=== PATIENT | female | born 1995 | race Caucasian/White ===

== ENCOUNTER 2018-06-01 20:28 | Emergency (ER) | payer SELFPAY ==
[~2018-06-01] VITALS: Ht 182.9 cm; Wt 108.7 kg
[2018-06-01 20:38] VITALS: BP 106/56
[2018-06-01] MEDS ORDERED: NAPR500T8 PO (20:59)
--- NOTE | 2018-06-01 20:59 | PHYS DOC ---
Past History Past Medical History: GERD Past Surgical History: Cholecystectomy Smoking: Cigarettes Alcohol Use: None Drug Use: None Adult General Chief Complaint Chief Complaint: LOWER EXT PAIN HPI HPI 23-year-old female presents with report of sudden left lateral knee pain which started at approximately 1800. Patient reports she was squatting at that time at her place of employment and felt a sudden "pop". Patient subsequent he had some sharp pain to the lateral aspect of her anterior left knee. Denies any swelling. Denies prior injury or surgery. Denies numbness or tingling. Denies . Patient reports her last menstrual period started a few days ago. Patient reports taking ibuprofen just prior to arrival. Review of Systems Review of Systems Constitutional: Denies fever or chills [] [] Cardiovascular: Denies chest pain or palpitations[] GI: Denies abdominal pain, nausea, vomiting, or diarrhea [] : Denies dysuria or hematuria; denies Musculoskeletal: Denies back pain; reports right knee pain [] Integument: Denies rash or skin lesions [] Neurologic: Denies headache, focal weakness or sensory changes [] Complete systems were reviewed and found to be within normal limits, except as documented in this note. Allergies Allergies Allergies Coded Allergies Type Severity Reaction Last Updated Verified Sulfa (Sulfonamide Antibiotics) Allergy Intermediate 06/01/18 Yes Physical Exam Physical Exam Constitutional: Well developed, well nourished, no acute distress, non-toxic appearance. [] HENT: Normocephalic, atraumatic Eyes: Conjunctiva normal, no discharge. [] Neck: Normal range of motion, supple Cardiovascular: Cap refill less than 2 seconds, left posterior tibialis pulse 2/ 4 Lungs & Thorax: No respiratory distress, no accessory muscle use Skin: Warm, dry, no erythema Extremities: ROM intact, no edema, tenderness to palpation to lateral tibial plateau of left knee Neurologic: Alert and oriented X 3,, no focal deficits noted. [] Psychologic: Affect normal, judgement normal, mood normal. [] Current Patient Data Vital Signs Vital Signs Date Time Temp Pulse Resp B/P (MAP) Pulse Ox O2 Delivery O2 Flow Rate FiO2 06/01/18 20:38 98.1 65 18 100 Room Air EKG EKG [] Radiology/Procedures Radiology/Procedures Left knee 3 view x-ray: (Preliminary interpretation by ED physician) no acute fracture or dislocation Course & Med Decision Making Course & Med Decision Making Pertinent Imaging studies reviewed. (See chart for details) Patient presents with left knee pain after feeling a sudden "pop" while patient was at work. No deformity or laxity appreciated on physical exam. Joint appears stable. X-ray obtained without acute process. Symptomatic treatment provided with ice pack and Toney wrap. Patient stable for discharge with outpatient follow-up with PCP/orthopedic surgeon. Orthopedic referral provided. Discussed findings and plan with patient, who acknowledges understanding and agreement. Dragon Disclaimer Dragon Disclaimer This electronic medical record was generated, in whole or in part, using a voice recognition dictation system. Splinting Splinting : Location: Left knee Pre-Made Type: Toney bandage Pre-Proc Neuro Vasc Exam: normal Post-Proc Neuro Vasc Exam: normal, unchanged from pre-exam Departure Departure: Impression: Primary Impression: Knee pain, acute Disposition: 01 HOME, SELF-CARE Condition: STABLE Referrals: PCP,UNKNOWN (PCP) ERNESTINE LOOMIS MD Patient Instructions: Knee Pain, Bvuv-ni-Atbr Scripts Naproxen (NAPROXEN) 500 Mg Tablet.dr 1 TAB PO Q12HR PRN for PAIN, #20 TAB Prov: JUSTUS JIMENEZ DO 06/01/18 Problem Qualifiers Primary Impression: Knee pain, acute Laterality: left Qualified Codes: M25.562 - Pain in left knee JUSTUS JIMENEZ DO Jun 01, 2018 20:59
--- NOTE | 2018-06-02 07:53 | RAD ---
Examination: KNEE LEFT 3V History: knee injury, left knee pain Comparison/Correlation: None Findings: Total 3 views of the left knee were obtained. Joint spaces are normal. No acute fracture or bony destruction. Soft tissues are unremarkable. No definite or significant joint effusion. No definite degenerative change. Impression: No suspicious process. Electronically signed by: Balaji Virk MD (06/02/2018 7:51 AM) [facility]
== END 2018-06-01 21:05 | disposition home or self-care (01) ==
LOC: ER 20:28
DX: M25.562 Pain in left knee (principal); K21.9 Gastro-esophageal reflux disease without esophagitis; F17.210 Nicotine dependence, cigarettes, uncomplicated; Z88.2 Allergy status to sulfonamides; X50.9XXA Other and unspecified overexertion or strenuous movements or postures, initial encounter; Y93.89 Activity, other specified; Y92.89 Other specified places as the place of occurrence of the external cause; Y99.8 Other external cause status
CPT/HCPCS: 73562; 99283

== ENCOUNTER 2018-08-29 13:54 | Emergency (ER) | payer SELFPAY ==
[~2018-08-29] VITALS: Ht 182.9 cm; Wt 106.6 kg
[~2018-08-29 13:54] MED LIST: NAPR500T8 PO
[2018-08-29 14:07] VITALS: BP 103/61
[2018-08-29] MEDS ORDERED: IPRATRPIUM/ALBUTEROL 0.5/2.5MG 3 ML NEBU. NEB ONE (14:15)
--- NOTE | 2018-08-29 14:40 | RAD ---
CHEST PA LATERAL History: Cough for one week Comparison: None. Findings: The cardiomediastinal silhouette is normal. Pulmonary vasculature is normal. The lungs are clear. No pleural effusion or pneumothorax is seen. There is no acute bone abnormality. Right upper quadrant surgical clips are present. IMPRESSION: No acute cardiopulmonary process. Electronically signed by: Balaji Virk MD (08/29/2018 2:37 PM) [facility]
[2018-08-29] MEDS ORDERED: AZIT250T PO (14:47)
--- NOTE | 2018-08-29 14:47 | PHYS DOC ---
Past History Past Medical History: GERD, Other Past Surgical History: Cholecystectomy Smoking: Cigarettes Alcohol Use: None Drug Use: None Adult General Chief Complaint Chief Complaint: COUGH HPI HPI Patient is a 23-year-old female who presents with complaint of cough, sinus congestion and shortness of breath for the last week. Patient states the cough is been getting progressively worse. She also indicates that she has had progressively worsening sputum production that she states started out as clear and has progressively gotten worse to the point now where it is green. She denies any fever. She indicates that the shortness of breath is worsened when she coughs and also with exertion.[] Review of Systems Review of Systems Constitutional: Denies fever or chills [] HENT: Complains of sinus congestion[] Respiratory: Complains of cough and shortness of breath [] Cardiovascular: No additional information not addressed in HPI [] GI: Denies abdominal pain, nausea, vomiting, bloody stools or diarrhea [] Current Medications Current Medications Current Medications Medications (Trade) Dose Ordered Sig/Courtney Start Time Stop Time Status Last Admin Dose Admin Albuterol/ Ipratropium (Duoneb) 3 ml 1X ONCE 08/29/18 14:15 08/29/18 14:22 DC 08/29/18 14:17 3 ML Allergies Allergies Allergies Coded Allergies Type Severity Reaction Last Updated Verified Sulfa (Sulfonamide Antibiotics) Allergy Intermediate 06/01/18 Yes Physical Exam Physical Exam Constitutional: Well developed, well nourished, no acute distress, non-toxic appearance. [] HENT: Normocephalic, atraumatic, bilateral external ears normal, oropharynx moist, no oral exudates, nose normal. [] Cardiovascular:Heart rate regular rhythm, no murmur [] Lungs & Thorax: Coarse rhonchi are noted bilaterally to auscultation [] Extremities: No tenderness, no cyanosis, no clubbing, ROM intact. [] Current Patient Data Vital Signs Vital Signs Date Time Temp Pulse Resp B/P (MAP) Pulse Ox O2 Delivery O2 Flow Rate FiO2 08/29/18 14:17 98 Room Air 08/29/18 14:07 98.3 58 18 EKG EKG [] Radiology/Procedures Radiology/Procedures [] Course & Med Decision Making Course & Med Decision Making Pertinent Labs and Imaging studies reviewed. (See chart for details) [] Dragon Disclaimer Dragon Disclaimer This electronic medical record was generated, in whole or in part, using a voice recognition dictation system. Departure Departure: Impression: Primary Impression: Acute bronchitis Disposition: 01 HOME, SELF-CARE Condition: STABLE Referrals: PCP,UNKNOWN (PCP) Patient Instructions: Acute Bronchitis Scripts Azithromycin (ZITHROMAX) 250 Mg Tablet 1 PKG PO UD for INFECTION, #6 TAB Prov: BETHANIE ARREAGA Jr. DO 08/29/18 Problem Qualifiers Primary Impression: Acute bronchitis Bronchitis organism: unspecified organism Qualified Codes: J20.9 - Acute bronchitis, unspecified BETHANIE ARREAGA Jr. DO Aug 29, 2018 14:47
== END 2018-08-29 14:57 | disposition home or self-care (01) ==
LOC: ER 13:54
DX: J20.9 Acute bronchitis, unspecified (principal); K21.9 Gastro-esophageal reflux disease without esophagitis; F17.210 Nicotine dependence, cigarettes, uncomplicated; Z88.2 Allergy status to sulfonamides
CPT/HCPCS: 71046; 94640; 99284; J7620

== ENCOUNTER 2018-11-03 21:31 | Emergency (ER) | payer SELFPAY ==
[~2018-11-03] VITALS: Ht 180.3 cm; Wt 95.3 kg
[~2018-11-03 21:31] MED LIST changes: +AZIT250T PO
--- NOTE | 2018-11-03 21:39 | ED.ADGEN ---
Past History Past Medical History: GERD, Other Past Surgical History: Cholecystectomy Smoking: Cigarettes Alcohol Use: None Drug Use: None Adult General Chief Complaint Chief Complaint ".... I ve been vomiting.. and having stomach cramps... I feel dehydrated...".. I ve vomited about 8 x day... " HPI HPI Patient is a 23 year old female who presents with above hx and complaints of nausea and vomiting in the past 24 hours. Patient is complaining of abdomen cramping .No history of diarrhea. No history of bad food. No history of travel. No history of specific ill contacts. Patient has had gallbladder removed in 2016 and tubal ligation 1999. Patient any trauma. Patient denies immunosuppression. Patient denies any history of illicit drug use. Patient normally follows at [facility] . Review of Systems Review of Systems Constitutional: Subjective history of fever Eyes: Denies change in visual acuity, redness, or eye pain [] HENT: Denies nasal congestion or sore throat [] Respiratory: Denies cough or shortness of breath [] Cardiovascular: No additional information not addressed in HPI [] GI: Complains of abdomen cramping , nausea, vomiting,. Denies bloody stools or diarrhea [] : Denies dysuria or hematuria [] Musculoskeletal: Denies back pain or joint pain [] Integument: Denies rash or skin lesions [] Neurologic: Denies headache, focal weakness or sensory changes [] Endocrine: Denies polyuria or polydipsia [] All other systems were reviewed and found to be within normal limits, except as documented in this note. Family History Family History Noncontributory Current Medications Current Medications Current Medications Medications (Trade) Dose Ordered Sig/Courtney Start Time Stop Time Status Last Admin Dose Admin Cephalexin HCl (Keflex) 500 mg 1X ONCE 11/03/18 23:30 11/03/18 23:31 DC 11/03/18 23:15 500 MG Famotidine (Pepcid Vial) 20 mg 1X ONCE 11/03/18 22:00 11/03/18 22:01 DC 11/03/18 22:25 20 MG Ketorolac Tromethamine (Toradol 30mg Vial) 30 mg STK-MED ONCE 11/03/18 23:13 11/03/18 23:13 DC Lactated Ringer's 1,000 ml @ 1,000 mls/hr 1X ONCE 11/03/18 23:30 11/04/18 00:21 DC 11/03/18 23:15 1,000 MLS/HR Ondansetron HCl (Zofran) 8 mg 1X ONCE 11/03/18 22:00 11/03/18 22:01 DC 11/03/18 22:25 8 MG Allergies Allergies Allergies Coded Allergies Type Severity Reaction Last Updated Verified Sulfa (Sulfonamide Antibiotics) Allergy Intermediate 06/01/18 Yes Physical Exam Physical Exam Constitutional: Mild to moderate distress, non-toxic appearance. [] HENT: Normocephalic, atraumatic, bilateral external ears normal, oropharynx moist, no oral exudates, nose normal. [] Eyes: PERRLA, EOMI, conjunctiva normal, no discharge. [] Neck: Normal range of motion, no tenderness, supple, no stridor. [] Cardiovascular:Heart rate regular rhythm, no murmur [] Lungs & Thorax: Bilateral breath sounds equal apex auscultation [] Abdomen: Bowel sounds hyperactive, soft, mild generalized tenderness, no masses, no pulsatile masses. [] No specific area rebound. Old surgery scars. Patient declines rectal exam at this time. Skin: Warm, dry, no erythema, no rash. [] Back: No tenderness, no CVA tenderness. [] Extremities: No tenderness, no cyanosis, no clubbing, ROM intact, no edema. [] No psoas sign. Neurologic: Alert and oriented X 3, normal motor function, normal sensory fu nction, no focal deficits noted. [] Psychologic: Affect anxious, judgement normal, mood normal. [] Current Patient Data Vital Signs Vital Signs Date Time Temp Pulse Resp B/P (MAP) Pulse Ox O2 Delivery O2 Flow Rate FiO2 11/04/18 00:13 51 20 114/68 (83) 98 Room Air 11/03/18 22:30 98.2 Lab Results Laboratory Tests Test 11/03/18 22:00 11/03/18 22:20 11/03/18 22:22 Urine Collection Type Unknown Urine Color Yellow Urine Clarity Hazy Urine pH 6.0 Urine Specific [place] 1.020 Urine Protein 30 mg/dl (NEG-TRACE) Urine Glucose (UA) Neg mg/dL (NEG) Urine Ketones (Stick) 40 mg/dL (NEG) Urine Blood Neg (NEG) Urine Nitrite Neg (NEG) Urine Bilirubin Neg (NEG) Urine Urobilinogen Dipstick 1 mg/dL (0.2 mg/dL) Urine Leukocyte Esterase Small (NEG) Urine RBC Occ /HPF (0-2) Urine WBC 5-10 /HPF (0-4) Urine Squamous Epithelial Cells Mod /LPF Urine Bacteria Few /HPF (0-FEW) Urine Mucus Marked /LPF Urine Opiates Screen Neg (NEG) Urine Methadone Screen Neg (NEG) Urine Barbiturates Neg (NEG) Urine Phencyclidine Screen Neg (NEG) Urine Amphetamine/Methamphetamine Neg (NEG) Urine Benzodiazepines Screen Neg (NEG) Urine Cocaine Screen Neg (NEG) Urine Cannabinoids Screen Neg (NEG) Urine Ethyl Alcohol Neg (NEG) White Blood Count 6.7 x10^3/uL (4.0-11.0) Red Blood Count 4.20 x10^6/uL (3.50-5.40) Hemoglobin 11.1 g/dL (12.0-15.5) L Hematocrit 34.8 % (36.0-47.0) L Mean Corpuscular Volume 83 fL (79-100) Mean Corpuscular Hemoglobin 27 pg (25-35) Mean Corpuscular Hemoglobin Concent 32 g/dL (31-37) Red Cell Distribution Width 14.5 % (11.5-14.5) Platelet Count 240 x10^3/uL (140-400) Neutrophils (%) (Auto) 59 % (31-73) Lymphocytes (%) (Auto) 30 % (24-48) Monocytes (%) (Auto) 9 % (0-9) Eosinophils (%) (Auto) 1 % (0-3) Basophils (%) (Auto) 1 % (0-3) Neutrophils # (Auto) 3.9 x10^3uL (1.8-7.7) Lymphocytes # (Auto) 2.0 x10^3/uL (1.0-4.8) Monocytes # (Auto) 0.6 x10^3/uL (0.0-1.1) Eosinophils # (Auto) 0.1 x10^3/uL (0.0-0.7) Basophils # (Auto) 0.1 x10^3/uL (0.0-0.2) Sodium Level 138 mmol/L (136-145) Potassium Level 3.5 mmol/L (3.5-5.1) Chloride Level 103 mmol/L (98-107) Carbon Dioxide Level 28 mmol/L (21-32) Anion Gap 7 (6-14) Blood Urea Nitrogen 6 mg/dL (7-20) L Creatinine 0.9 mg/dL (0.6-1.0) Estimated GFR (Cockcroft-Gault) 79.0 Glucose Level 91 mg/dL (70-99) Calcium Level 8.8 mg/dL (8.5-10.1) Total Bilirubin 0.6 mg/dL (0.2-1.0) Direct Bilirubin 0.2 mg/dL (0.0-0.2) Aspartate Amino Transferase (AST) 13 U/L (15-37) L Alanine Aminotransferase (ALT) 13 U/L (14-59) L Alkaline Phosphatase 71 U/L (46-116) Total Protein 7.1 g/dL (6.4-8.2) Albumin 3.5 g/dL (3.4-5.0) Amylase Level 37 U/L (25-115) Lipase 53 U/L (73-393) L POC Urine HCG, Qualitative hcg negative (Negative) EKG EKG [] Radiology/Procedures Radiology/Procedures My interpretation acute abdomen film shows no acute cardiopulmonary findings. No free air under diaphragm. Nonspecific bowel gas pattern.[] Course & Med Decision Making Course & Med Decision Making Pertinent Labs and Imaging studies reviewed. (See chart for details) Stay on a clear fluid diet for the next 24-48 hours. No solid or milk products. Take Tylenol and ibuprofen for pain. Take Zofran 8 mg up 4 times a day for nausea and vomiting. Follow-up primary care. Return if any concerns. Take Keflex 500 mg for UTI. Follow-up urine culture. [] Final Impression Final Impression 1. Nausea and Vomiting[] 2. UTI 3. Mild Dehydration Dragon Disclaimer Dragon Disclaimer This electronic medical record was generated, in whole or in part, using a voice recognition dictation system. Dragon Disclaimer This chart was dictated in whole or in part using Voice Recognition software in a busy, high-work load, and often noisy Emergency Department environment. It may contain unintended and wholly unrecognized errors or omissions. DARWIN TOLENTINO MD Nov 03, 2018 21:39
[2018-11-03] MEDS ORDERED: FAMOTIDINE 20 MG/2 ML VIAL IVP ONE (22:00)
[2018-11-03] MEDS ORDERED: ONDANSETRON PF 4 MG/2 ML VIAL. IV ONE (22:00)
[2018-11-03 22:25] LABS: BARBITURATES NEG (NEG); BENZODIAZEPINES NEG (NEG); CANNABINOIDS NEG (NEG); COCAINE NEG (NEG); METHADONE NEG (NEG); OPIATES NEG (NEG); PHENCYCLIDINE NEG (NEG)
[2018-11-03 22:31] LABS: AMPHETAMINE/METHAMPHETAMINE NEG (NEG)
[2018-11-03 22:44] LABS: BACTERIA,URINE FEW /HPF (0-FEW); BILIRUBIN,URINE NEG (NEG); CLARITY,URINE HAZY; COLOR,URINE YELLOW; GLUCOSE,URINE NEG (NEG); NITRITE,URINE NEG (NEG); RBC,URINE OCC /HPF (0-2); SQUAMOUS EPITHELIAL CELL,UR MOD /LPF; UROBILINOGEN,URINE 1 mg/dL (0.2 mg/dL)
[2018-11-03 22:46] LABS: BASO # 0.1 x10^3/uL (0.0-0.2); BASO % 1 % (0-3); EOS # 0.1 x10^3/uL (0.0-0.7); EOS % 1 % (0-3); HEMATOCRIT 34.8 % (36.0-47.0); HEMOGLOBIN 11.1 g/dL (12.0-15.5); LYMPH % 30 % (24-48); MEAN CORPUSCULAR HEMOGLOBIN 27 pg (25-35); MEAN CORPUSCULAR HGB CONC 32 g/dL (31-37); MEAN CORPUSCULAR VOLUME 83 fL (79-100); MONO # 0.6 x10^3/uL (0.0-1.1); MONO % 9 % (0-9); NEUT # 3.9 x10^3uL (1.8-7.7); NEUT % 59 % (31-73); PLATELET COUNT 240 x10^3/uL (140-400); RED CELL DISTRIBUTION WIDTH 14.5 % (11.5-14.5); WHITE BLOOD COUNT 6.7 x10^3/uL (4.0-11.0)
[2018-11-03 22:58] LABS: ALBUMIN 3.5 g/dL (3.4-5.0); CALCIUM 8.8 mg/dL (8.5-10.1); CREATININE 0.9 mg/dL (0.6-1.0); DIRECT BILIRUBIN 0.2 mg/dL (0.0-0.2); POTASSIUM 3.5 mmol/L (3.5-5.1); TOTAL BILIRUBIN 0.6 mg/dL (0.2-1.0); TOTAL PROTEIN 7.1 g/dL (6.4-8.2)
[2018-11-03] MEDS ORDERED: ONDA8TAB9 PO (23:07)
[2018-11-03] MEDS ORDERED: CEPH-264 PO (23:07)
[2018-11-03] MEDS ORDERED: KETOROLAC 30 MG/ML VIAL. ONE (23:13)
[2018-11-03] MEDS ORDERED: IV RINGERS SOLUTION,LACTATED 1,000 ML IV ONE (23:30)
[2018-11-03] MEDS ORDERED: KETOROLAC 30 MG/ML VIAL. IV ONE (23:30)
[2018-11-03] MEDS ORDERED: CEPHALEXIN 250 MG CAPSULE PO ONE (23:30)
[2018-11-04 00:13] VITALS: BP 114/68
--- NOTE | 2018-11-04 02:19 | RAD ---
ACUTE ABDOMEN SERIES INDICATION: Nausea, vomiting. COMPARISON STUDY: Chest radiograph 08/29/2018. FINDINGS: Lungs: Normal lung volume. No pulmonary mass or consolidation. The tracheobronchial tree and hilar structures are normal. Pleura: No pleural effusion or pneumothorax. Heart and Mediastinum: The cardiomediastinal silhouette is normal. The great vessels of the thorax are normal. Abdomen: Nonobstructive bowel gas pattern. No free air Bones and Soft Tissues: The bones and soft tissues are within normal limits. IMPRESSION: No acute cardiopulmonary process. Nonobstructive bowel gas pattern. Electronically signed by: Rupesh Briscoe MD (11/04/2018 2:16 AM) [facility]
== END 2018-11-04 00:15 | disposition home or self-care (01) ==
LOC: ER 21:31
DX: N39.0 Urinary tract infection, site not specified (principal); E86.0 Dehydration; K21.9 Gastro-esophageal reflux disease without esophagitis; F17.210 Nicotine dependence, cigarettes, uncomplicated; Z90.49 Acquired absence of other specified parts of digestive tract; Z88.2 Allergy status to sulfonamides
CPT/HCPCS: 36415; 74022; 80048; 80076; 80307; 81001; 81025; 82150; 83690; 85025; 87086; 96361; 96374; 96375; 99285; J1885; J2405; J3490; J7120

== ENCOUNTER 2018-11-29 15:00 | Emergency (ER) | payer SELFPAY ==
[~2018-11-29] VITALS: Ht 180.3 cm; Wt 96.2 kg
[~2018-11-29 15:00] MED LIST changes: +CEPH-264 PO; +ONDA8TAB9 PO
[2018-11-29 15:22] VITALS: BP 104/44
[2018-11-29] MEDS ORDERED: LIDOCAINE 2%/EPI 1:100,000 20 ML VIAL. IJ ONE (15:30)
[2018-11-29] MEDS ORDERED: NEOMY/BACITR/POLYMYXIN OINT PACKET. TP ONE (15:30)
--- NOTE | 2018-11-29 16:19 | PHYS DOC ---
Past History Past Medical History: Depression, GERD, Other Past Surgical History: Cholecystectomy, Other Additional Past Surgical Histo: WISDOM TEETH, TUBES IN EARS CHILD Smoking: Non-smoker Alcohol Use: None Drug Use: None Adult General Chief Complaint Chief Complaint: HEAD INJURY/TRAUMA HPI HPI 23-year-old female presents with report of laceration to right forehead after patient was helping carry address her down some stairs and ended up slipping causing the dresser to strike her head. Patient reports significant bleeding to area which is now improved. Reports last tetanus shot less than 5 years ago. Denies loss of consciousness. Denies use of blood thinners. Denies neck pain. Denies . Review of Systems Review of Systems Constitutional: Denies fever or chills Eyes: Denies redness or eye pain HENT: Denies nasal congestion, epistaxis, or sore throat Respiratory: Denies cough or shortness of breath Cardiovascular: Denies chest pain or palpitations GI: Denies abdominal pain, nausea, or vomiting : Denies dysuria or hematuria Musculoskeletal: Denies back pain, neck pain, or joint pain Integument: Denies rash; reports laceration to right forehead Neurologic: Reports headache; denies focal weakness, dizziness, loss of consciousness, or sensory changes Complete systems were reviewed and found to be within normal limits, except as documented in this note. Current Medications Current Medications Current Medications Medications (Trade) Dose Ordered Sig/Courtney Start Time Stop Time Status Last Admin Dose Admin Lidocaine/ Epinephrine (Xylocaine 2%-Epi 1:100,000) 20 ml 1X ONCE 11/29/18 15:30 11/29/18 15:31 DC 11/29/18 15:30 20 ML Neomycin/ Polymyxin/ Bacitracin (Triple Antibiotic Ointment) 1 pkt 1X ONCE 11/29/18 15:30 11/29/18 15:31 DC 11/29/18 15:30 1 PKT Allergies Allergies Allergies Coded Allergies Type Severity Reaction Last Updated Verified Sulfa (Sulfonamide Antibiotics) Allergy Intermediate 06/01/18 Yes Physical Exam Physical Exam Constitutional: Well developed, well nourished, no acute distress, non-toxic appearance HENT: Normocephalic, 4 cm laceration to right forehead near hairline with secondary 0.5 cm laceration above right eyebrow- bleeding controlled, oropharynx moist, TMs clear Eyes: PERRL, EOMI, conjunctiva normal, no discharge, no nystagmus noted Neck: Normal range of motion, no midline tenderness, supple Cardiovascular: Heart rate normal, regular rhythm Lungs & Thorax: Bilateral breath sounds clear to auscultation, no wheezing Skin: Warm, dry, no erythema, no rash, right forehead lacerations as above Extremities: No tenderness, ROM intact, no edema Neurologic: Alert and oriented X 3, normal motor function, normal sensory function, no focal deficits noted Psychologic: Affect normal, judgement normal Current Patient Data Vital Signs Vital Signs Date Time Temp Pulse Resp B/P (MAP) Pulse Ox O2 Delivery O2 Flow Rate FiO2 11/29/18 15:22 98.2 88 16 99 Room Air EKG EKG [] Radiology/Procedures Radiology/Procedures [] Course & Med Decision Making Course & Med Decision Making Patient presents with right forehead lacerations 2. Patient neurologically intact. No midline cervical spine tenderness noted. Wounds cleaned, repaired, and dressed. Tetanus updated. Patient stable for discharge with outpatient follow-up with PCP. Discussed findings and plan with patient and friend, who acknowledge understanding and agreement. Dragon Disclaimer Dragon Disclaimer This electronic medical record was generated, in whole or in part, using a voice recognition dictation system. Laceration/Wound Repair Laceration/Wound Repair : Wound Location: head (right forehead) Wound's Depth, Shape: superficial Wound Explored: clean Irrigated w/ Saline (ccs): 200 Anesthesia: Lidocaine w/ Epi (2%) Volume Anesthetic (ccs): 5 Wound Debrided: minimal Wound Repaired With: sutures Suture Size/Type: 6:0, nylon Number of Sutures: 8 (Total between 2 seperate laceration repairs (7,1)) Sterile Dressing Applied?: Yes Progress Verbal consent obtained. Time out performed. Hand hygiene utilized. Wound cleaned with ChloraPrep. Anesthesia obtained via a 25-gauge hypodermic needle with (5) mL's of lidocaine 2% with epinephrine. Copious irrigation performed. #1 laceration to right forehead (4cm) near hairline well approximated with 6-0 N ylon x 7 sutures. #2 laceration above right eyebrow (0.5cm) well approximated with 6-0 Nylon x 1 suture. Patient tolerated procedure well and without difficulty. Empiric antibiotic ointment applied prior to sterile dressing. Departure Departure: Impression: Primary Impression: Forehead laceration Disposition: 01 HOME, SELF-CARE Condition: STABLE Referrals: PCP,NO (PCP) Patient Instructions: Laceration Care, Adult, [id number] Additional Instructions: Do not soak your wound. You may shower. Clean wound daily with soap and water. Change dressing 2 times daily. Use over the counter antibiotic ointment with each dressing change. Sutures need to be removed in 5 days. Present to your family doctor or local urgent care for removal. You may also present to the ED but it will be an additional visit/charge. After suture removal you may use Vitamin E ointment to soften the wound and prevent scarring. Problem Qualifiers Primary Impression: Forehead laceration Encounter type: initial encounter Qualified Codes: S01.81XA - Laceration without foreign body of other part of head, initial encounter JUSTUS JIMENEZ DO Nov 29, 2018 16:19
== END 2018-11-29 16:23 | disposition home or self-care (01) ==
LOC: ER 15:00
DX: S01.81XA Laceration without foreign body of other part of head, initial encounter (principal); K21.9 Gastro-esophageal reflux disease without esophagitis; Z88.2 Allergy status to sulfonamides; W22.8XXA Striking against or struck by other objects, initial encounter; Y93.89 Activity, other specified; Y92.89 Other specified places as the place of occurrence of the external cause; Y99.8 Other external cause status
CPT/HCPCS: 12013; 99284

== ENCOUNTER 2018-12-03 12:29 | Emergency (ER) | payer SELFPAY ==
[~2018-12-03] VITALS: Ht 180.3 cm; Wt 108.7 kg
[2018-12-03 12:30] VITALS: BP 105/64
--- NOTE | 2018-12-03 12:32 | PHYS DOC ---
Past History Past Medical History: Depression, GERD, Other Past Surgical History: Cholecystectomy, Other Additional Past Surgical Histo: WISDOM TEETH, TUBES IN EARS CHILD Smoking: Non-smoker Alcohol Use: None Drug Use: None Adult General Chief Complaint Chief Complaint: Wound evaluation HPI HPI 23-year-old female presents with report of swelling below right eye with history of recent laceration to right forehead after getting hit with a dresser while helping her friend move. Patient was seen on Tuesday after the injury with laceration repair. Patient reports concern that she feels the swelling has continued to get worse and bruising has increased below her eye. Denies redness or discharge. Denies fever or chills. Review of Systems Review of Systems Constitutional: Denies fever or chills Eyes: Denies redness or eye pain HENT: Denies nasal congestion or sore throat Respiratory: Denies cough or shortness of breath Cardiovascular: Denies chest pain or palpitations GI: Denies abdominal pain, nausea, or vomiting : Denies dysuria or hematuria Musculoskeletal: Denies back pain or joint pain Integument: Denies rash; reports previously repaired forehead laceration with ecchymosis below right eye Neurologic: Denies headache, focal weakness or sensory changes Complete systems were reviewed and found to be within normal limits, except as documented in this note. Allergies Allergies Allergies Coded Allergies Type Severity Reaction Last Updated Verified Sulfa (Sulfonamide Antibiotics) Allergy Intermediate 06/01/18 Yes Physical Exam Physical Exam Constitutional: Well developed, well nourished, no acute distress, non-toxic appearance HENT: Normocephalic, healing scalp laceration on right, sutures intact, no surrounding erythema, no exudate Eyes: PERRL, EOMI, conjunctiva normal, no discharge, ecchymosis noted below right eye Neck: Normal range of motion, supple Skin: Warm, dry, no erythema, right forehead laceration with retained stitches and some surrounding ecchymosis, small laceration above right eyebrow intact with suture Neurologic: Alert and oriented X 3, speech normal Psychologic: Affect normal, judgement normal EKG EKG [] Radiology/Procedures Radiology/Procedures [] Course & Med Decision Making Course & Med Decision Making Patient presents for wound reevaluation with report of ecchymosis below right eye. Patient with history of blunt trauma with lacerations to right for head. Laceration repairs intact without surrounding erythema. Discussed ecchymosis secondary to pull of gravity after blunt trauma. Smaller laceration suture removed for comfort. Patient reports she has an appointment to have a larger laceration reevaluated with suture removal on Tuesday. Antibiotic ointment applied to site of removed suture. Educated to ice area to help with swelling and bruising. Patient stable for discharge with outpatient follow-up with PCP. Discussed findings and plan with patient, who acknowledges understanding and agreement. Dragon Disclaimer Dragon Disclaimer This electronic medical record was generated, in whole or in part, using a voice recognition dictation system. Departure Departure: Impression: Primary Impression: Encounter for re-check of laceration wound Additional Impression: Ecchymosis Disposition: HOME, SELF-CARE Condition: STABLE Referrals: PCP,DYLON (PCP) Patient Instructions: Sutured Wound Care, [id number] Additional Instructions: ICE area 20 min on then leave off for next 20 min. Do not soak your wound. You may shower. Clean wound daily with soap and water. Change dressing 2 times daily. Use over the counter antibiotic ointment with each dressing change. Present to your family doctor or local urgent care for removal after sutures have been in for total of 5 days. You may also present to the ED but it will be an additional visit/charge. After suture removal you may use Vitamin E ointment to soften the wound and prevent scarring. Problem Qualifiers JUSTUS JIMENEZ DO Dec 03, 2018 12:32
[2018-12-03] MEDS ORDERED: NEOMY/BACITR/POLYMYXIN OINT PACKET. TP ONE ×2 (12:42→12:45)
== END 2018-12-03 12:44 | disposition home or self-care (01) ==
LOC: ER 12:29
DX: S01.81XD Laceration without foreign body of other part of head, subsequent encounter (principal); K21.9 Gastro-esophageal reflux disease without esophagitis; F32.9 Major depressive disorder, single episode, unspecified; Z88.2 Allergy status to sulfonamides; W22.8XXD Striking against or struck by other objects, subsequent encounter
CPT/HCPCS: 99282

== ENCOUNTER → 2020-01-29 | Emergency (ER) | payer SELFPAY ==
--- NOTE | 2020-01-29 05:28 | PHYS DOC ---
Past History Past Medical History: Anxiety, Depression, GERD, Other Past Surgical History: Cholecystectomy, Other Additional Past Surgical Histo: WISDOM TEETH, TUBES IN EARS CHILD Smoking: Non-smoker Alcohol Use: None Drug Use: None General Adult HPI: HPI: History gained from patient. Patient is a 24-year-old female who presents with chief complaint of left wrist laceration. States she was opening a kitchen drawer. She states that knives accidentally fell out and cut the ventral aspect of the distal portion of her left forearm. Denies any numbness or tingling. Did note immediate bleeding and gaping wound. Is up-to-date on her tetanus she states. States she is right-handed. No other complaints. Review of Systems: Review of Systems: Constitutional: Denies fever or chills Eyes: Denies change in visual acuity HENT: Denies nasal congestion or sore throat Respiratory: Denies cough or shortness of breath Cardiovascular: Denies chest pain or edema GI: Denies abdominal pain, nausea, vomiting, bloody stools or diarrhea : Denies dysuria Musculoskeletal: Denies back pain or joint pain Integument: Positive for laceration Neurologic: Denies headache, focal weakness or sensory changes Endocrine: Denies polyuria or polydipsia Lymphatic: Denies swollen glands Psychiatric: Denies depression or anxiety Allergies: Allergies: Allergies Coded Allergies Type Severity Reaction Last Updated Verified Sulfa (Sulfonamide Antibiotics) Allergy Intermediate 06/01/18 Yes Physical Exam: PE: Constitutional: Well developed, well nourished, no acute distress, non-toxic appearance. [] HENT: Normocephalic, atraumatic, bilateral external ears normal, oropharynx moist, no oral exudates, nose normal. [] Eyes: PERRLA, EOMI, conjunctiva normal, no discharge. [] Neck: Normal range of motion, no tenderness, supple, no stridor. [] Cardiovascular:Heart rate regular rhythm, no murmur [] Lungs & Thorax: Bilateral breath sounds clear to auscultation [] Abdomen: soft, no tenderness, no masses, no pulsatile masses. [] Skin: Warm, dry, no erythema, no rash. [] Back: No tenderness, no CVA tenderness. [] Extremities: 2 cm linear laceration noted to the distal ventral aspect of the left forearm. Neurologic: Alert and oriented X 3, normal motor function, normal sensory function, no focal deficits noted. [] Psychologic: Affect normal, judgement normal, mood normal. [] EKG: EKG: [] Radiology/Procedures: Radiology/Procedures: [] Laceration Repair: Obtained verbal consent from patient. Time out done prior to procedure. No sedation was required. 1 laceration(s) to ventral aspect of the distal left forearm. Sterile drape fashioned, following sterile procedure. Procedure: Laceration Repair Length: 2 cm Description: Linear, clean Mechanism: Knife Shape: Linear Complex: No The wound area was prepped and draped in a sterile fashion. The wound area was anesthetized with 1% lidocaine without epinephrine. The wound was explored with the following results no tendon involvement.. The wound was repaired with 3, 3-0 Ethilon; sutures were used. The wound was dressed cleanly. The patient tolerated the procedure well. Heart Score: Risk Factors: Risk Factors: DM, Current or recent (<one month) smoker, HTN, HLP, family history of CAD, obesity. Risk Scores: Score 0 - 3: 2.5% MACE over next 6 weeks - Discharge Home Score 4 - 6: 20.3% MACE over next 6 weeks - Admit for Clinical Observation Score 7 - 10: 72.7% MACE over next 6 weeks - Early Invasive Strategies Course & Med Decision Making: Course & Med Decision Making Pertinent Labs and Imaging studies reviewed. (See chart for details) [] Patient is a well-appearing right-handed 24-year-old female presents with chief complaint of laceration to the ventral aspect of her distal left forearm. X-ray reveals no obvious foreign bodies. Laceration repaired at bedside. See procedure note for further details. Patient states she is up-to-date on her tetanus vaccine. Instructed have sutures removed in 7 days. Return precautions discussed and understood. Stable for discharge home. Dragon Disclaimer: Cliff Disclaimer: This electronic medical record was generated, in whole or in part, using a voice recognition dictation system. Departure Departure: Impression: Primary Impression: Forearm laceration Qualified Codes: S51.812A - Laceration without foreign body of left forearm, initial encounter Disposition: 01 DC HOME SELF CARE/HOMELESS Condition: STABLE Referrals: PCP,DYLON (PCP) MAX SALGUERO DO Jan 29, 2020 05:28
--- NOTE | 2020-01-29 05:57 | RAD ---
FOREARM LEFT History: Reason: LACERATION, DISTAL/ANTERIOR FOREARM. / Spl. Instructions: / History: Technique: 2 views left forearm. Comparison: None. Findings: Normal alignment. No fracture. No radiopaque foreign body. Anterior distal forearm soft tissue injury. Impression: 1. Anterior distal forearm soft tissue injury. No radiopaque foreign body. Electronically signed by: Chai Bacon DO (01/29/2020 5:53 AM) [facility]
== END | disposition home or self-care (01) ==
LOC: ER 01:34
DX: S51.812A Laceration without foreign body of left forearm, initial encounter (principal); Z90.49 Acquired absence of other specified parts of digestive tract; W26.0XXA Contact with knife, initial encounter; Y93.89 Activity, other specified; Y99.8 Other external cause status; Y92.89 Other specified places as the place of occurrence of the external cause
CPT/HCPCS: 12001; 73090; 99283

== ENCOUNTER 2020-02-02 20:39 | Emergency (ER) | payer SELFPAY ==
[~2020-02-02] VITALS: Ht 182.9 cm; Wt 91.4 kg
[2020-02-02 20:50] VITALS: BP 101/62
--- NOTE | 2020-02-02 20:55 | PHYS DOC ---
Past History Past Medical History: Anxiety, Depression, GERD, Other Past Surgical History: Cholecystectomy, Other Additional Past Surgical Histo: WISDOM TEETH, TUBES IN EARS CHILD Smoking: Non-smoker Alcohol Use: None Drug Use: None Adult General Chief Complaint Chief Complaint: ANXIETY/PANIC ATTACK HPI HPI Patient is a 24-year-old female presents emergency department complaining of increased anxiety related from her chronic depression. Patient states she usually keeps under control as she talks to a psychotherapist once a week, [facility] patient states that due to high volume and a busy holiday season, she has not talked to her psychotherapist in the past 2 weeks. Patient states her next appointment this week with her is on the . Patient states that she is not homicidal and is not suicidal, she states that she does has feelings of low self-worth, and feels like she needs some sort of medication adjustment or something to help her get through these hard times. Patient denies any current fever or chills, denies chest pains, shortness of breath, chest palpitations, nasal congestion, fever or chills. Patient denies any STI concerns, denies vaginal discharge, denies any urinary signs or symptoms. Patient denies having the COVID-19 virus that does not wish to be checked today. Review of Systems Review of Systems 14 body systems of review of systems have been reviewed. See HPI for pertinent positives and negative responses, otherwise all other systems are negative, nonpertinent or noncontributory. Current Medications Current Medications Patient states she takes 10 mg of Lexapro q. morning. Allergies Allergies Allergies Coded Allergies Type Severity Reaction Last Updated Verified Sulfa (Sulfonamide Antibiotics) Allergy Intermediate 06/01/18 Yes Physical Exam Physical Exam Constitutional: Well developed, well nourished, no acute distress, non-toxic appearance. HENT: Normocephalic, atraumatic, bilateral external ears normal, oropharynx moist, no oral exudates, nose normal. Eyes: PERRLA, EOMI, conjunctiva normal, no discharge. Neck: Normal range of motion, no tenderness, supple, no stridor. Cardiovascular:Heart rate regular rhythm, no murmur Lungs & Thorax: Bilateral breath sounds clear to auscultation Abdomen: Bowel sounds normal, soft, no tenderness, no masses, no pulsatile masses. Skin: Warm, dry, no erythema, no rash. Back: No tenderness, no CVA tenderness. Extremities: No tenderness, no cyanosis, no clubbing, ROM intact, no edema. Neurologic: Alert and oriented X 3, normal motor function, normal sensory function, no focal deficits noted. Psychologic: Affect normal, judgement normal, mood normal. EKG EKG [] Radiology/Procedures Radiology/Procedures [] Heart Score Risk Factors: Risk Factors: DM, Current or recent (<one month) smoker, HTN, HLP, family hist ory of CAD, obesity. Risk Scores: Risk Factors: DM, Current or recent (<one month) smoker, HTN, HLP, family history of CAD, obesity. Course & Med Decision Making Course & Med Decision Making Pertinent Labs and Imaging studies reviewed. (See chart for details) 24-year-old female presents emergency department complaining of anxiety/panic attacks related to her depression. Patient states that she usually keeps this under control as she gets to talk to her psychotherapist once a week but was been unable to lately because of the busy holiday season. Patient states she takes 10 mg of Lexapro daily, is wondering if there is something in addition she could take or if she should adjust her dose in order to prevent these feelings of anxiety and panic. Patient is currently not suicidal, does not have any homicidal ideation. Discussed with patient will try 1 mg of p.o. Ativan in the emergency department. Upon reevaluation of the patient, the patient states she feels much better, is able to handle her anxieties at this point at home. Discussed with patient that she should follow-up with her psychotherapist in 5 days, she should also follow-up with her primary care to possibly have her Lexapro dose adjusted or an additional medication to help her handle her breakthrough anxieties and panic attacks. Patient gave verbal understanding of discharge home instructions, return to ER precautions and concerns, patient had no further questions or concerns, patient discharged home without incident. Diagnosis anxiety related to depression. This is unlikely an acute psychotic event, a manic outbreak, or a schizophrenic exacerbation. Dragon Disclaimer Dragon Disclaimer This electronic medical record was generated, in whole or in part, using a voice recognition dictation system. Departure Departure: Impression: Primary Impression: Anxiety associated with depression Disposition: 01 DC HOME SELF CARE/HOMELESS Condition: IMPROVED Referrals: PCP,NO (PCP) Patient Instructions: Anxiety and Panic Attacks Additional Instructions: You were treated today in the emergency department for an anxiety attack, you are given a 1 mg dose of Ativan p.o. He had stated this medication helped very well. I recommend that you follow-up with your therapist as appointed in 5 days. Speak with her about your ER visit today and how this medication helped. Please keep your future appointments with your psychotherapist, please return to emergency department for worsening symptoms or other concerns. JUSTUS ARTEAGA [employer]SEMBLER FINGER BUFFS Feb 02, 2020 20:55
[2020-02-02] MEDS ORDERED: LORazepam 1 MG TABLET PO ONE (21:15)
== END 2020-02-02 22:15 | disposition home or self-care (01) ==
LOC: ER 20:39
DX: F41.8 Other specified anxiety disorders (principal); F32.9 Major depressive disorder, single episode, unspecified; K21.9 Gastro-esophageal reflux disease without esophagitis; Z88.2 Allergy status to sulfonamides
CPT/HCPCS: 99283

== ENCOUNTER 2020-04-21 00:34 | Emergency (ER) | payer MEDICARE ==
[~2020-04-21] VITALS: Ht 182.9 cm; Wt 90.0 kg
--- NOTE | 2020-04-21 00:40 | PHYS DOC ---
Past History Past Medical History: Anxiety, Constipation, Depression, GERD, Sciatica Past Surgical History: Cholecystectomy, Other Additional Past Surgical Histo: WISDOM TEETH, EUSTACIAN TUBES Smoking: Non-smoker Alcohol Use: Rarely Drug Use: None General Adult HPI: HPI: ".. I hurting bad.. down here in my lower back.. it seems to run around to my hip.. and also down the back of my leg.. this started in my Rt. hip... about a month ago.. and now it is in both hips... " I tried all kinds of [id number] medications, I have tried hot baths but nothing seems. Relieving this low back pain..." Patient is a 24 year old female who presents with above hx and complaints lumbar sacral back pain that appears to track along the sciatic nerve. Pain initially started in right hip but is now in both hips. Straight leg lift s exacerbates her low back pain and hip pain. Patient does have findings consistent with constipation. No problems with defecation except hard stools. No problems of urination. Patient has no saddle loss. Patient denies any fever or chills. Patient denies any history of depression. No recent travel. 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 Patient also has some complaints of GERD symptoms. No history immunosuppression. No history of trauma fall. Patient's back pain and hip pain has been somewhat intermittent for the past month. Review of Systems: Review of Systems: Constitutional: Denies fever or chills Eyes: Denies change in visual acuity HENT: Denies nasal congestion or sore throat Respiratory: Denies cough or shortness of breath Cardiovascular: Denies chest pain or edema GI: Denies abdominal pain, nausea, vomiting, bloody stools or diarrhea complains of reflux. Complains of constipation : Denies dysuria Musculoskeletal: Complains back pain and bilateral hip joint pain Integument: Denies rash Neurologic: Denies headache, focal weakness or sensory changes Endocrine: Denies polyuria or polydipsia Lymphatic: Denies swollen glands Psychiatric: Denies depression or anxiety Family History: Family History: Noncontributory to presentation. Current Medications: Current Meds: See nursing for home meds Allergies: Allergies: Allergies Coded Allergies Type Severity Reaction Last Updated Verified Sulfa (Sulfonamide Antibiotics) Allergy Intermediate 06/01/18 Yes Physical Exam: PE: Constitutional: Moderate acute distress, non-toxic appearance. [] HENT: Normocephalic, atraumatic, bilateral external ears normal, oropharynx mo ist, no oral exudates, nose normal. [] Eyes: PERRLA, EOMI, conjunctiva normal, no discharge. [] Neck: Normal range of motion, no tenderness, supple, no stridor. [] Cardiovascular:Heart rate regular rhythm, no murmur [] Lungs & Thorax: Bilateral breath sounds equal apex with few scattered wheezes on auscultation [] Abdomen: Bowel sounds normal, soft, no tenderness, no masses, no pulsatile masses. Distended abdomen. Old surgery scars Skin: Warm, dry, no erythema, no rash. [] Back: Lumbar sacral tenderness, primary area of pain paraspinal muscles that are spasming at L5-S1, pain follows along sciatic nerves bilaterally into hips. No CVA tenderness. [] Extremities: Bilateral hip tenderness, no cyanosis, no clubbing, ROM intact, no edema. No cording appreciated. Neurologic: Alert and oriented X 3, moves all extremities on request l has distal sensory function, no focal deficits noted. DTRs +2 patella. Psychologic: Affect anxious, judgement normal, mood normal. [] EKG: EKG: [] Radiology/Procedures: Radiology/Procedures: [][place] [id number] IMAGING REPORT Signed PATIENT: RACHELE BOWLING ACCOUNT: [id number] : 1995 LOCATION: ER AGE: 24 SEX: F EXAM STATUS: REG ER ORD. 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 PROCEDURE: CT LUMBAR SPINE WO CONTRAST EXAM: CT ABDOMEN/PELVIS WITHOUT CONTRAST. HISTORY: Fall, abdominal and back pain. TECHNIQUE: Computed tomography of the abdomen and pelvis was performed without intravenous contrast. One or more of the following individualized dose reduction techniques were utilized for this examination: 1. Automated exposure control. 2. Adjustment of the mA and/or kV according to patient size. 3. Use of iterative reconstruction technique. COMPARISON: None. FINDINGS: Lung windows through the visualized portions of the bases reveal mild atelectasis. The transverse processes of L1 and L2 are incompletely fused. No fractures are identified. Intervertebral disc heights are maintained. Lumbar alignment is maintained. Small to moderate central disc protrusions are suspected at L4-5 and L5-S1. There is no significant stenosis throughout. Bone windows reveal no suspicious lesions. The gallbladder is surgically absent. There is a calcified granuloma in the liver. The liver, spleen, pancreas, adrenal glands and kidneys are otherwise unremarkable without contrast. There are no renal or ureteral calculi. There are no pathologically enlarged lymph nodes. The appendix is not inflamed. There is no small bowel obstruction. A small amount of free pelvic fluid is likely physiologic. IMPRESSION: 1. Small to moderate central disc protrusions at L4/5/S1. No clear stenosis. MRI head further evaluate if there is persistent concern. 2. No acute intra-abdominal process. Electronically signed by: John Mccabe MD (04/21/2020 2:16 AM) [facility] DICTATED AND SIGNED BY: LORENZO MCCABE MD DATE: 04/21/20206 CC: DARWIN TOLENTINO MD; PCP,NO ~MTH0 0 Heart Score: Risk Factors: Risk Factors: DM, Current or recent (<one month) smoker, HTN, HLP, family history of CAD, obesity. Risk Scores: Score 0 - 3: 2.5% MACE over next 6 weeks - Discharge Home Score 4 - 6: 20.3% MACE over next 6 weeks - Admit for Clinical Observation Score 7 - 10: 72.7% MACE over next 6 weeks - Early Invasive Strategies Course & Med Decision Making: Course & Med Decision Making Pertinent Labs and Imaging studies reviewed. (See chart for details) Patient use ice packs as needed. Take Tylenol and ibuprofen for pain. Marked pain may take Vicoprofen. Patient take Pepcid 20 mg twice a day. Patient take milk of mag 30 cc daily if taking a Vicoprofen. Patient follow-up primary care. Patient return if any concerns. Patient to practice good mechanics and lifting to limit work. Consider follow up MRI of Lumbar spine after review of ED eval. and possible needed for neuro surgical consult or physical therapy consult. Impression: 1. Sciatica 2. Constipation 3. Central Disc protrusions-L4/5/S1 [] Dragon Disclaimer: Cliff Disclaimer: This electronic medical record was generated, in whole or in part, using a voice recognition dictation system. Departure Departure: Referrals: PCP,NO (PCP) Scripts Hydrocodone/Ibuprofen (HYDROCODONE-IBUPROFEN 7.5-200 ) 1 Each Tablet 1 TAB PO PRN Q6HRS PRN for PAIN, #30 TAB 0 Refills Prov: DARWIN TOLENTINO MD 04/21/20 Famotidine (PEPCID) 20 Mg Tablet 20 MG PO BID for GERD, #60 TAB Prov: DARWIN TOLENTINO MD 04/21/20 Cliff Disclaimer This chart was dictated in whole or in part using Voice Recognition software in a busy, high-work load, and often noisy Emergency Department environment. It may contain unintended and wholly unrecognized errors or omissions. DARWIN TOLENTINO MD Apr 21, 2020 00:40
[2020-04-21 01:11] LABS: BARBITURATES NEG (NEG); BENZODIAZEPINES NEG (NEG); CANNABINOIDS NEG (NEG); COCAINE NEG (NEG); METHADONE NEG (NEG); OPIATES NEG (NEG); PHENCYCLIDINE NEG (NEG)
[2020-04-21 01:13] LABS: BILIRUBIN,URINE NEG (NEG); CLARITY,URINE CLEAR; COLOR,URINE YELLOW; GLUCOSE,URINE NEG (NEG); NITRITE,URINE NEG (NEG); RBC,URINE 0 /HPF (0-2); UROBILINOGEN,URINE 0.2 mg/dL (0.2 mg/dL)
[2020-04-21 01:14] LABS: AMPHETAMINE/METHAMPHETAMINE NEG (NEG); BACTERIA,URINE 0 /HPF (0-FEW); SQUAMOUS EPITHELIAL CELL,UR OCC /LPF; WBC,URINE OCC /HPF (0-4)
[2020-04-21] MEDS ORDERED: MAGNESIUM HYDROXIDE 2,400 MG/30 ML ORAL.SUSP. PO ONE (01:30)
[2020-04-21] MEDS ORDERED: oxyCODONE/APAP 5/325 1 TAB TABLET PO ONE (01:30)
[2020-04-21] MEDS ORDERED: FAMOTIDINE 20 MG TABLET PO ONE (01:30)
[2020-04-21] MEDS ORDERED: FAMO-63 PO (01:31)
[2020-04-21] MEDS ORDERED: HYDR-1179 PO (01:31)
--- NOTE | 2020-04-21 02:18 | RAD ---
EXAM: CT ABDOMEN/PELVIS WITHOUT CONTRAST. HISTORY: Fall, abdominal and back pain. TECHNIQUE: Computed tomography of the abdomen and pelvis was performed without intravenous contrast. One or more of the following individualized dose reduction techniques were utilized for this examinat ion: 1. Automated exposure control. 2. Adjustment of the mA and/or kV according to patient size. 3. Use of iterative reconstruction technique. COMPARISON: None. FINDINGS: Lung windows through the visualized portions of the bases reveal mild atelectasis. The transverse processes of L1 and L2 are incompletely fused. No fractures are identified. Interverte bral disc heights are maintained. Lumbar alignment is maintained. Small to moderate central disc prot rusions are suspected at L4-5 and L5-S1. There is no significant stenosis throughout. Bone windows re veal no suspicious lesions. The gallbladder is surgically absent. There is a calcified granuloma in the liver. The liver, spleen, pancreas, adrenal glands and kidneys are otherwise unremarkable without contrast. There are no renal or ureteral calculi. There are no pathologically enlarged lymph nodes. The appendix is not inflamed. There is no small bow el obstruction. A small amount of free pelvic fluid is likely physiologic. IMPRESSION: 1. Small to moderate central disc protrusions at L4/5/S1. No clear stenosis. MRI head further evaluat e if there is persistent concern. 2. No acute intra-abdominal process. Electronically signed by: John Mccabe MD (04/21/2020 2:16 AM) [facility]
[2020-04-21 02:45] VITALS: BP 97/54
== END 2020-04-21 02:45 | disposition home or self-care (01) ==
LOC: ER 00:34
DX: M51.17 Intervertebral disc disorders with radiculopathy, lumbosacral region (principal); K59.00 Constipation, unspecified; K21.9 Gastro-esophageal reflux disease without esophagitis; Z90.49 Acquired absence of other specified parts of digestive tract; Z88.2 Allergy status to sulfonamides
CPT/HCPCS: 36415; 72131; 74176; 80307; 81001; 81025; 99285-25

== ENCOUNTER 2020-05-03 19:42 | Emergency (ER) | payer MEDICARE ==
[~2020-05-03] VITALS: Ht 182.9 cm; Wt 88.4 kg
[~2020-05-03 19:42] MED LIST changes: +FAMO-63 PO; +HYDR-1179 PO
--- NOTE | 2020-05-03 19:45 | PHYS DOC ---
Past History Past Medical History: Anxiety, Constipation, Depression, GERD, Sciatica Past Surgical History: Cholecystectomy, Other Additional Past Surgical Histo: WISDOM TEETH, EUSTACIAN TUBES Smoking: Non-smoker Alcohol Use: None Drug Use: None General Adult HPI: HPI: ".. I can't seem to keep anything down.. I did have some chicken nuggets.. on Tuesday at work.. and had problems since then keeping things down.. I .. did get a COVID shot on and have been a little off since then..." Patient is a 25 year old female who presents with above hx and complaints of nausea, GERD, and vomiting. Patient has been ill the last 2 or 3 days. Was not feeling well since a Covid shot on Tuesday. Patient denies any intake of bad food. Did have a small stool today which was somewhat hard. Patient has significant medical history of gallbladder surgery at age 15. There is a strong family history of gallbladder disease at early age. Patient normally follows [facility]. Patient denies . Last normal menstruation 2 weeks ago. No history of ovarian cyst. No history of endometriosis. Does have sometimes abdomen pain with menstruation. Hx. of constipation. Review of Systems: Review of Systems: Constitutional: Denies fever or chills Eyes: Denies change in visual acuity HENT: Denies nasal congestion or sore throat Respiratory: Denies cough or shortness of breath Cardiovascular: Denies chest pain or edema GI: complaints of abdominal pain, nausea, vomiting,.Pt. denies bloody stools or diarrhea : Denies dysuria Musculoskeletal: Denies back pain or joint pain Integument: Denies rash Neurologic: Denies headache, focal weakness or sensory changes Endocrine: Denies polyuria or polydipsia Lymphatic: Denies swollen glands Psychiatric: Denies depression or anxiety Family History: Family History: Multiple family members members have had gallbladder disease in the 20s Current Medications: Current Meds: See nursing for home meds Allergies: Allergies: Allergies Coded Allergies Type Severity Reaction Last Updated Verified Sulfa (Sulfonamide Antibiotics) Allergy Intermediate 06/01/18 Yes Physical Exam: PE: Constitutional: Moderate acute distress, non-toxic appearance. [] HENT: Normocephalic, atraumatic, bilateral external ears normal, oropharynx dry, no oral exudates, nose normal. [] Eyes: PERRLA, EOMI, conjunctiva normal, no discharge. [] Neck: Normal range of motion, no tenderness, supple, no stridor. [] Cardiovascular: Bradycardia heart rate regular rhythm, no murmur [] Lungs & Thorax: Bilateral breath sounds clear to auscultation [] Abdomen: Bowel sounds hyperactive, soft, epigastric tenderness, no masses, no pulsatile masses. Mildly distended and tympanic. Old surgery scars. Rebound to epigastric area Skin: Warm, dry, no erythema, no rash. [] Back: No tenderness, no CVA tenderness. [] Extremities: No tenderness, no cyanosis, no clubbing, ROM intact, no edema. No cording appreciated Neurologic: Alert and oriented X 3, normal motor function, normal sensory function, no focal deficits noted. [] Psychologic: Affect anxious, judgement normal, mood normal. [] EKG: EKG: My interpretation EKG shows a sinus bradycardia 59 bpm. No acute morphology [] Radiology/Procedures: Radiology/Procedures: [][place] [id number] IMAGING REPORT Signed PATIENT: RACHELE BOWLING ACCOUNT: [id number] : 1995 LOCATION: ER AGE: 25 SEX: F EXAM STATUS: REG ER ORD. PHYSICIAN: DARWIN TOLENTINO MD REASON: PAIN, N/V PROCEDURE: ACUTE ABDOMEN SERIES EXAM: 2 VIEW ABDOMEN WITH ONE VIEW CHEST. HISTORY: Pain, nausea/vomiting. COMPARISON: 11/03/2018. 04/21/2020 FINDINGS: A frontal view of the chest and supine/upright views of the abdomen are obtained. There are no confluent infiltrates. There is no pneumothorax or pleural effusion. The heart is not enlarged. A 3 mm calcification corresponds with a calcified granuloma on prior CT. There is no pneumoperitoneum. There are no distended small bowel loops or significant air-fluid levels. There is gas distally. Cholecystectomy clips are noted. IMPRESSION: 1. No confluent infiltrates. 2. No evidence of obstruction. Electronically signed by: John Mccabe MD (05/03/2020 9:24 PM) [facility] DICTATED AND SIGNED BY: LORENZO MCCABE MD DATE: 05/03/202120 CC: DARWIN TOLENTINO MD; DEMOND CHILDS MD ~MTH0 0 Heart Score: C/O Chest Pain: Yes HEART Score for Chest Pain: HEART Score for Chest Pain Response (Comments) Value History Slighlty/Non-Suspicious 0 ECG Normal 0 Age < 45 0 Risk Factors No Risk Factors 0 Troponin < Normal Limit 0 Total 0 Risk Factors: Risk Factors: DM, Current or recent (<one month) smoker, HTN, HLP, family history of CAD, obesity. Risk Scores: Score 0 - 3: 2.5% MACE over next 6 weeks - Discharge Home Score 4 - 6: 20.3% MACE over next 6 weeks - Admit for Clinical Observation Score 7 - 10: 72.7% MACE over next 6 weeks - Early Invasive Strategies Course & Med Decision Making: Course & Med Decision Making Pertinent Labs and Imaging studies reviewed. (See chart for details) Clear fluid diet only for the next 48 hours. No solids. No milk products. Take Zofran 8 mg at 4 times a day for active nausea and vomiting. Take Pepcid 20 mg twice a day. Follow-up primary care. Return if any concerns. Consider follow-up with GI and obtain a GED. Patient to high-fat and spicy meals. Impression: 1. Nausea and vomiting 2. Epigastric pain 3. GERD 4. Viral Syndrome vs Vaccination Covid sequela 5. Status post Covid vaccination on 04/01/2020 6. Hx of Constipation [] Dragshahzad Disclaimer: Cliff Disclaimer: This electronic medical record was generated, in whole or in part, using a voice recognition dictation system. Departure Departure: Referrals: PCP,NO (PCP) Scripts Famotidine (PEPCID) 20 Mg Tablet 20 MG PO BID for gerd for 30 Days, #60 TAB Prov: DARWIN TOLENTINO MD 05/03/20 Ondansetron Hcl (ZOFRAN) 4 Mg Tablet 8 MG PO QIDPRN PRN for n, #30 TAB Prov: DARWIN TOLENTINO MD 05/03/20 DARWIN TOLENTINO MD May 03, 2020 19:45
[2020-05-03] MEDS ORDERED: ONDANSETRON PF 4 MG/2 ML VIAL. IVP ONE ×2 (20:15→21:45)
[2020-05-03] MEDS ORDERED: FAMOTIDINE 20 MG/2 ML VIAL IVP ONE (20:15)
[2020-05-03] MEDS ORDERED: IV NORMAL SALINE 1,000ML 1,000 ML IV SCH (20:15)
[2020-05-03] MEDS ORDERED: MAGNESIUM CITRATE 296 ML SOLUTION. PO ONE (20:15)
[2020-05-03] MEDS ORDERED: IV RINGERS SOLUTION,LACTATED 1,000 ML IV SCH (20:15)
[2020-05-03 20:52] LABS: CALCIUM 9.1 mg/dL (8.5-10.1); CREATININE 0.8 mg/dL (0.6-1.0); GFR 88.9; POTASSIUM 3.9 mmol/L (3.5-5.1)
[2020-05-03 20:53] LABS: BILIRUBIN,URINE SMALL (NEG); CLARITY,URINE HAZY; COLOR,URINE YELLOW; GLUCOSE,URINE NEG (NEG); NITRITE,URINE NEG (NEG); UROBILINOGEN,URINE 0.2 mg/dL (0.2 mg/dL)
[2020-05-03 20:53] LABS: BASO % 1 % (0-3); EOS # 0.1 x10^3/uL (0.0-0.7); EOS % 1 % (0-3); HEMATOCRIT 36.3 % (36.0-47.0); HEMOGLOBIN 11.7 g/dL (12.0-15.5); LYMPH % 19 % (24-48); MEAN CORPUSCULAR HEMOGLOBIN 27 pg (25-35); MEAN CORPUSCULAR HGB CONC 32 g/dL (31-37); MEAN CORPUSCULAR VOLUME 83 fL (79-100); MONO # 0.4 x10^3/uL (0.0-1.1); MONO % 8 % (0-9); NEUT # 3.9 x10^3uL (1.8-7.7); NEUT % 71 % (31-73); PLATELET COUNT 212 x10^3/uL (140-400); RED BLOOD COUNT 4.37 x10^6/uL (3.50-5.40); RED CELL DISTRIBUTION WIDTH 13.4 % (11.5-14.5); WHITE BLOOD COUNT 5.4 x10^3/uL (4.0-11.0)
[2020-05-03 20:54] LABS: BACTERIA,URINE MOD /HPF (0-FEW); RBC,URINE OCC /HPF (0-2); SQUAMOUS EPITHELIAL CELL,UR MOD /LPF
--- NOTE | 2020-05-03 21:26 | RAD ---
EXAM: 2 VIEW ABDOMEN WITH ONE VIEW CHEST. HISTORY: Pain, nausea/vomiting. COMPARISON: 11/03/2018. 04/21/2020 FINDINGS: A frontal view of the chest and supine/upright views of the abdomen are obtained. There are no confluent infiltrates. There is no pneumothorax or pleural effusion. The heart is not en larged. A 3 mm calcification corresponds with a calcified granuloma on prior CT. There is no pneumoperitoneum. There are no distended small bowel loops or significant air-fluid level s. There is gas distally. Cholecystectomy clips are noted. IMPRESSION: 1. No confluent infiltrates. 2. No evidence of obstruction. Electronically signed by: John Mccabe MD (05/03/2020 9:24 PM) [facility]
[2020-05-03] MEDS ORDERED: PROCHLORPERAZINE 10 MG/2 ML VIAL. IV ONE (22:30)
[2020-05-03] MEDS ORDERED: diphenhydrAMINE 50 MG/ML VIAL IVP ONE (22:30)
[2020-05-03] MEDS ORDERED: MORPHINE SULFATE 10 MG/ML SYRINGE. SQ ONE (22:30)
[2020-05-03 22:48] LABS: AMPHETAMINE/METHAMPHETAMINE NEG (NEG); BARBITURATES NEG (NEG); BENZODIAZEPINES NEG (NEG); CANNABINOIDS NEG (NEG); COCAINE NEG (NEG); METHADONE NEG (NEG); OPIATES NEG (NEG); PHENCYCLIDINE NEG (NEG)
[2020-05-03] MEDS ORDERED: FAMO-63 PO (23:08)
[2020-05-03] MEDS ORDERED: ONDA4TAB7 PO (23:08)
[2020-05-03 23:15] VITALS: BP 103/60
--- NOTE | 2020-05-04 03:38 | EKG ---
[facility] ED [facility] [address] [place] [id number] Test Date: 2020-05-03 Test Time: 22:04:13 Pat Name: RACHELE BOWLING Department: Room: Gender: F [employer]: : 1995 Requested By: DARWIN TOLENTINO Order Number: [id number] Reading MD: Measurements Intervals [place] Rate: 59 P: 54 CA: 202 QRS: 74 QRSD: 82 T: 41 QT: 402 QTc: 402 Interpretive Statements SINUS RHYTHM NORMAL ECG RI6.02 No previous ECG available for comparison
== END 2020-05-03 23:20 | disposition home or self-care (01) ==
LOC: ER 19:42
DX: R11.2 Nausea with vomiting, unspecified (principal); R10.13 Epigastric pain; K21.9 Gastro-esophageal reflux disease without esophagitis; F41.9 Anxiety disorder, unspecified; F32.9 Major depressive disorder, single episode, unspecified; Z90.49 Acquired absence of other specified parts of digestive tract; Z88.2 Allergy status to sulfonamides
CPT/HCPCS: 36415; 74022; 80048; 80307; 81001; 81025; 82150; 83690; 84484; 85025; 87086; 93005; 96361; 96372; 96374; 96375; 96376; 99285; J1200; J2270; J2405; J3490; J7030; J7120

== ENCOUNTER 2021-02-13 13:13 | Emergency (ER) | payer MEDICARE ==
[~2021-02-13] VITALS: Ht 182.9 cm; Wt 111.3 kg
[~2021-02-13 13:13] MED LIST changes: +ONDA4TAB7 PO
[2021-02-13 13:50] VITALS: BP 121/67
[2021-02-13] MEDS ORDERED: AMOX875T PO (14:11)
--- NOTE | 2021-02-13 14:11 | PHYS DOC ---
Past History Past Medical History: Constipation, Depression Past Surgical History: No Surgical History Additional Past Surgical Histo: WISDOM TEETH, EUSTACIAN TUBES Smoking: Non-smoker Alcohol Use: None Drug Use: None Adult General Chief Complaint Chief Complaint: EARACHE/EAR PAIN [facility] HPI Patient is a 25-year-old female patient presented to the ED today complaining of 10 out of 10 left ear pain, symptoms began 1 week ago. Patient states symptoms got worse this morning. She is also complaining of nasal congestion for a week and a slight fever that began today. Reports being vaccinated from COVID19. Left vaccine was in June 2020 Review of Systems Review of Systems Constitutional: Reports fever Eyes: Denies change in visual acuity, redness, or eye pain [] HENT: Reports left ear pain, nasal congestion denies sore throat [] Respiratory: Denies cough or shortness of breath [] Cardiovascular: No additional information not addressed in HPI [] GI: Denies abdominal pain, nausea, vomiting, bloody stools or diarrhea [] : Denies dysuria or hematuria [] Musculoskeletal: Denies back pain or joint pain [] Integument: Denies rash or skin lesions [] Neurologic: Denies headache, focal weakness or sensory changes [] All other systems were reviewed and found to be within normal limits, except as documented in this note. Allergies Allergies Allergies Coded Allergies Type Severity Reaction Last Updated Verified Sulfa (Sulfonamide Antibiotics) Allergy Intermediate 06/01/18 Yes Physical Exam Physical Exam Constitutional: Well developed, well nourished, no acute distress, non-toxic appearance. [] HENT: Normocephalic, atraumatic, bilateral external ears normal, oropharynx moist, no oral exudates, patient sounds congested nasally, left TM is moderately injected. Eyes: PERRLA, EOMI, conjunctiva normal, no discharge. [] Neck: Normal range of motion, no tenderness, supple, no stridor. [] Cardiovascular:Heart rate regular rhythm, no murmur [] Lungs & Thorax: Bilateral breath sounds clear to auscultation [] Abdomen: Bowel sounds normal, soft, no tenderness, no masses, no pulsatile masses. [] Skin: Warm, dry, no erythema, no rash. [] Back: No tenderness, no CVA tenderness. [] Extremities: No tenderness, no cyanosis, no clubbing, ROM intact, no edema. [] Neurologic: Alert and oriented X 3, normal motor function, normal sensory function, no focal deficits noted. [] Psychologic: Affect normal, judgement normal, mood normal. [] Current Patient Data Vital Signs Vital Signs Date Time Temp Pulse Resp B/P (MAP) Pulse Ox O2 Delivery O2 Flow Rate FiO2 02/13/21 13:50 99.7 98 20 121/67 (85) 97 Room Air EKG EKG [] Radiology/Procedures Radiology/Procedures [] Heart Score C/O Chest Pain: N/A Risk Factors: Risk Factors: DM, Current or recent (<one month) smoker, HTN, HLP, family history of CAD, obesity. Risk Scores: Risk Factors: DM, Current or recent (<one month) smoker, HTN, HLP, family history of CAD, obesity. Course & Med Decision Making Course & Med Decision Making Pertinent Labs and Imaging studies reviewed. (See chart for details) This is a 25-year-old female patient with left otitis media, temperature 99.7. Also upper respiratory infection. Discharged on amoxicillin. Tylenol/Motrin for pain or fever. Follow-up with primary care doctor in 1 to 2 weeks Dragshahzad Disclaimer Dragon Disclaimer This electronic medical record was generated, in whole or in part, using a voice recognition dictation system. Departure Departure: Impression: Primary Impression: Otitis media, left Additional Impressions: URI (upper respiratory infection) Fever Disposition: HOME / SELF CARE / HOMELESS Condition: STABLE Referrals: DEMOND CHILDS MD (PCP) follow up in one week Patient Instructions: Fever, Adult, Otitis Media, Adult, Upper Respiratory Infection, Adult, [id number] Additional Instructions: You have an ear infection. Take the prescribed antibiotics until completed. Take Tylenol or Motrin for pain or fever. Follow-up with your doctor in 1 week Scripts Amoxicillin (AMOXICILLIN) 875 Mg Tablet 1 TAB PO BID, #20 TAB Prov: DEBRAHEATHER Quirino MATTRESS RENOVATOR 02/13/21 Problem Qualifiers Primary Impression: Otitis media, left Otitis media type: other nonsuppurative Chronicity: acute Recurrence: non-recurrent Qualified Codes: H65.192 - Other acute nonsuppurative otitis media, left ear Additional Impressions: URI (upper respiratory infection) URI type: unspecified URI Qualified Codes: J06.9 - Acute upper respiratory infection, unspecified Fever Fever type: unspecified Qualified Codes: R50.9 - Fever, unspecified HEATHER RICHARDSON MATTRESS RENOVATOR Feb 13, 2021 14:11
== END 2021-02-13 14:14 | disposition home or self-care (01) ==
LOC: ER 13:13
DX: H66.92 Otitis media, unspecified, left ear (principal); J06.9 Acute upper respiratory infection, unspecified; R50.9 Fever, unspecified; Z88.2 Allergy status to sulfonamides
CPT/HCPCS: 99283-25